=== PATIENT | male | born 1990 | race Caucasian/White ===

== ENCOUNTER → 2016-08-18 | Outpatient (CLI) | payer BC, OTHER ==
[2016-08-18 14:40] LABS: CHOLESTEROL/HDL RATIO 4.1
== END | disposition home or self-care (01) ==
LOC: C.LABMFLN 08:38
PROVIDERS: ATTEND Family Medicine
DX: Z13.220 Encounter for screening for lipoid disorders (principal); Z13.1 Encounter for screening for diabetes mellitus

== ENCOUNTER → 2017-06-08 | Outpatient (CLI) | payer BC | END | disposition home or self-care (01) | LOC: C.LABMFLN 08:26 | PROVIDERS: ATTEND Family Medicine | DX: R53.83 Other fatigue (principal) ==